=== PATIENT | female | born 1940 | race Caucasian/White ===

== ENCOUNTER → 2017-08-22 | Outpatient (CLI) | payer OTHER ==
[~2017-08-22] VITALS: Ht 167.6 cm; Wt 86.2 kg
[~2017-08-22] MED LIST: NORCO 10-325 T1 EACH PO; OMEPRAZOLE40 MG PO; VEETIDS 500500 MG PO; XANAX1 MG PO
--- NOTE | ~2017-08-22 | CATHLAB ---
[facility] [address] [place] [address] INVASIVE PROCEDURE REPORT Name: ROGELIO LAM Room #: REG Lali#: [id number] Admission: 08/22/17 Attend Phys: Elpidio Molina MD Discharge: Date of : 36 Date of Service: 08/22/17 1001 Report #: [id number] THIS REPORT FOR: //name// APPROVED REPORT Study performed: 08/22/2017 08:11:42 Patient Details Patient Status: Out-Patient Room #: The patient is a 77 year-old female Event Personnel Elpidio Molina Cotton Buyer, Rey Horner RN, Madi Thompson RN RN, Britney Lugo RTR, Adam Ernst David Monitor Procedures Performed Left Heart Cath w/or w/o Coronaries [id number] [facility] Indication Atypical chest pain Admission/Lab Medications/Medications given during procedure Heparin Unfract. Procedure Narrative The patient was brought electively to the Cardiac Catheterization Laboratory and was prepped and draped in a sterile manner. The Right Wrist^ was infiltrated with 1% Lidocaine subcutaneous anesthesia. A TRANSRADIAL SLENDER 6F [employer] KIT #[id number] sheath was inserted into the Right Radial Artery^. Coronary angiography was performed using coronary diagnostic catheters. The right coronary system was accessed and visualized with a JR4 catheter. The left coronary system was accessed and visualized with a 5FR JL 3.5 #[id number] catheter. The left ventricle was accessed and visualized with a PIGTAIL catheter. Left ventricular/Aortic Valve gradient assessed via catheter pullback. Left ventriculogram was performed in 30 degree projection. Closure device was deployed with a 6 Fr VASC BAND R 24CM #[id number]. The patient tolerated the procedure well and there were no complications associated with the procedure. There was no hematoma. Difficultly cannulating ostium of left main. However, flush injection of ostium allowed adequate visualization of left coronary arteries. Intraoperative Conscious Sedation [facility] [address] [place] [address] INVASIVE PROCEDURE REPORT Name: REBECCA LAMI VEROGEORGE Room #: REG [facility]#: [id number] Admission: 08/22/17 Attend Phys: Elpidio Molina MD Discharge: Date of : 36 Date of Service: 08/22/17 1001 Report #: [id number] Sedation start time: 8.33 Case end Time: 9.11 Fentanyl 150 mcg Versed 2 mg Fluoro Time: 6.00 minutes Dose: DAP 4630 cGycm2 491 mGy Contrast Type and Amount: Visipaque 117 ml Coronary Angiography The patient's coronary anatomy is right dominant. [place] Artery Percent Stenosis Left Main: 0 % Prox LAD: 0 % Mid/Distal LAD: 30 % Circumflex: 30 % RCA: 30 % Ramus: % Left Ventriculography The left ventricle is normal in size with normal contractility. The left ventricular ejection fraction is estimated to be 60-65%. Left ventricular wall motion abnormalities are not present. There is no mitral insufficiency. Hemodynamics The aortic pressure is 153/82 mmHg with a mean of 69 mmHg. The left ventricular pressure is 154/12 mmHg with a mean of mmHg. The left ventricular end diastolic pressure is 20 mmHg. There was no gradient across the aortic valve upon pullback. Pullback from the left ventricle to the aorta revealed no gradient across the aortic valve. Conclusion 1. minimal cad 2. normal LV function 3. suspect noncardiac chest pain <ELECTRONICALLY SIGNED> By: Elpidio Molina MD, FACC 08/22/17 1001 100 1001 Elpidio Molina MD, FACC /INF
--- NOTE | ~2017-08-22 | EKG ---
[address] [place] [address] ELECTROCARDIOGRAM REPORT Name: ROGELIO LAM [facility]: [facility] [id number] Admission: 08/22/17 Attend Phys: Elpidio Molina MD, FA Discharge: Date of : 36 Report #: [id number] THIS REPORT FOR: //name// [facility] Test Date: 2017-08-22 Test Time: 07:36:38 Pat Name: ROGELIO LAM Department: Room: Gender: F Draw Operator: GR : [id number] Requested By: Elpidio Molina Order Number: [id number] MD: Raffi Sommers Measurements Intervals Mccoy Rate: 71 P: 9 ME: 157 QRS: -63 QRSD: 98 T: 31 QT: 397 QTc: 432 Interpretive Statements Sinus rhythm Left anterior fascicular block Baseline wander in lead(s) I,II,aVR,V3,V4 Compared to ECG 08/29/1995 13:43:00 Left anterior fascicular block now present Electronically Signed On 08-22-2017 7:39:31 CDT by Raffi Sommers [email or web address] <ELECTRONICALLY SIGNED> By: Raffi Sommers MD, [facility] 08/22/17 0739 Raffi Sommers MD, [facility] /EPI
[2017-08-22 07:30] VITALS: BP 141/67
[2017-08-22 08:15] LABS: HEMATOCRIT 39.8 % (37.0-47.0); HEMOGLOBIN 13.5 gm/dL (12.0-15.0); MCH 30.3 pg (26.0-34.0); MCHC 33.8 g/dL (28.0-37.0); MCV 89.5 fL (80.0-100.0); RBC 4.44 mil/uL (4.20-5.00); RDW 13.9 % (10.5-14.5); WBC 7.3 thou/uL (4.0-11.0)
[2017-08-22 08:23] LABS: ANION GAP 6 mmol/L (7-16); BUN 13 mg/dL (7-18); CALCIUM 8.8 mg/dL (8.5-10.1); CHLORIDE 107 mmol/L (98-107); CO2 26 mmol/L (21-32); CREATININE 0.9 mg/dL (0.6-1.0); GLUCOSE 104 mg/dL (74-106); POTASSIUM 3.6 mmol/L (3.5-5.1); SODIUM 139 mmol/L (136-145)
[2017-08-22 08:29] LABS: CHOLESTEROL 211 mg/dL (<200); HDL CHOLESTEROL 49 mg/dL (>40); LDL CHOLESTEROL 139 mg/dL (<100); TC:HDL 4.3 Ratio (Not establshd); TRIGLYCERIDE 116 mg/dL (<150); VLDL 23 mg/dL (<40)
== END | disposition home or self-care (01) ==
LOC: CATH 06:49
PROVIDERS: Internal Medicine Cardiovascular Disease
DX: I25.10 Atherosclerotic heart disease of native coronary artery without angina pectoris (principal); Z90.710 Acquired absence of both cervix and uterus; Z98.890 Other specified postprocedural states; Z90.49 Acquired absence of other specified parts of digestive tract; K21.9 Gastro-esophageal reflux disease without esophagitis; F17.210 Nicotine dependence, cigarettes, uncomplicated